=== PATIENT | male | born 1940 | race Caucasian/White ===

== ENCOUNTER 2016-11-13 13:45 | Inpatient (IN) | payer MEDICARE, OTHER ==
--- NOTE | ~2016-11-13 | EKG ---
PATIENT: MERCEDEZ MUÑOZ UNIT #: [id number] Ventricular Rate: 107 BPM Atrial Rate: 107 BPM P-R Interval: 166 ms QRS Duration: 168 ms Q-T Interval: 390 ms QTC Calculation(Bezet): 520 ms P Todd: 27 degrees Calculated R Todd: -73 degrees Calculated T Todd: 67 degrees Diagnosis Line: Sinus tachycardia Diagnosis Line: Possible Left atrial enlargement Diagnosis Line: Right bundle branch block Diagnosis Line: Left anterior fascicular block Diagnosis Line: Bifascicular block Diagnosis Line: Abnormal ECG Diagnosis Line: No previous ECGs available Diagnosis Line: Confirmed by SUZIE HALL MD ([id number]) on Diagnosis Line: 12/02/2016 6:28:37 AM INTERPRETING : NANCY
--- NOTE | ~2016-11-13 | CT4 ---
[facility] A Service of [facility] RADIOLOGY TEXT RESULTS PATIENT: MERCEDEZ MUÑOZ LOCATION: C3A - : 39 UNIT #: [id number] AGE: [address]: Chiqui Lenz MD SEX: M ORDER DR: [id number] [facility] [address] [place], [place] [address] [id number] I MR#: [id number] #: [id number] NAME: MERCEDEZ MUÑOZ : 1940 SEX: M STUDY DATE/TIME: 11/14/2016 19:33 UNIT: C3A PCU ROOM: 305 STUDY DESCRIPTION: CT Abd and Pelv Wo Cont Attending Physician: Chiqui Lenz M.D. Ordering Physician: Chiqui Lenz M.D. Primary Care Physician: Flaquito Mijares M.D. MEDICAL IMAGING REPORT This report is preliminary unless electronic signature is present EXAM CT abdomen and pelvis without contrast HISTORY Abdominal pain onset today. History of sepsis. TECHNIQUE Axial images performed through the abdomen and pelvis without contrast. Multiplanar reconstructed images reviewed. This CT exam was performed with one or more of the following radiation dose reduction techniques: automatic exposure control, adjustment of mA and/or kV according to patient size, and iterative reconstruction. FINDINGS Abdomen: Lung bases unremarkable. Cardiomegaly. Evidence of old granulomas disease. Liver unremarkable except for a low-attenuation lesion along the anterior margin. Liver measuring about 2.1 cm may represent a cyst or hemangioma. Spleen, gallbladder appear normal. Pancreas, kidneys and adrenal glands unremarkable except for a probable cyst lower pole left kidney, measuring about 3.7 cm. The stomach, small bowel colon unremarkable. Pelvis: Bladder is decompressed. There is a subtle nonspecific stranding and/or edema within the pelvic fat just above the bladder. This represents a nonspecific finding. Clearly no drainable fluid collection or abscess seen. Osseous structures remarkable for L2-3 degenerative disc changes. Extensive facet arthropathy lower lumbar spine. On further review there are additional low-attenuation lesions throughout the liver, nonspecific, could represent hepatic cysts. Further evaluation and followup may be STS. [facility] A Service of [facility] RADIOLOGY TEXT RESULTS PATIENT: MERCEDEZ MUÑOZ LOCATION: C3A 305-01 : 39 UNIT #: [id number] AGE: [address]: Chiqui Lenz MD SEX: M ORDER DR: warranted to confirm nature of these lesions. Potentially these could represent metastases. IMPRESSION 1. Nonspecific perivesical edema with questionable bladder wall thickening. Findings are nonspecific but could reflect cystitis. Some edema extends into the left lower quadrant within the retroperitoneum. 2. Multiple low-attenuation liver lesions probably represent benign processes such as cysts; however, clinical followup recommended. Additional imaging to include dedicated liver MRI or CT or ultrasound may be of benefit. Dictated by... Nahum Delgadillo M.D. THIS IS AN ELECTRONICALLY VERIFIED REPORT Nahum Delgadillo M.D. at 11/15/2016 6:54 PM Ana TD: 11/15/2016 04:24 JOB #: [id number] MEDICAL IMAGING REPORT Page 1 of 1 COPY
--- NOTE | ~2016-11-13 | HP ---
Unit #: [id number] #: [id number] Patient: MERCEDEZ MUÑOZ [id number] [address] [address] [id number] I MR#: [id number] NAME: MERCEDEZ MUÑOZ ROOM: 305 Age: 76 Sex: M Admission Date: 11/13/2016 : 1940 Attending Physician: Samira Garcia M.D. Primary Care Physician: Flaquito Mijares M.D. HISTORY AND PHYSICAL CHIEF COMPLAINT UTI with chronic urinary incontinence, toxic metabolic encephalopathy. HISTORY This 76-year-old male with skin cancer, DJD, and likely BPH, was transferred from [facility] emergency department for UTI and confusion. Patient has been experiencing urinary incontinence for the past 3 years, which did not improve with Flomax. He was in his usual state of health until this morning when he was noted to be weak and confused. He was taken to [facility] emergency department early this afternoon with a temperature of 101.8. Was found to have a urinary tract infection. Was given Tylenol; bolused with a liter of saline; given Rocephin, morphine, and Zofran. Apparently, did experience some atypical chest discomfort en route to [facility] ER. Patient states that he had a normal stress test a couple years ago. EKG is abnormal, but I have no EKG for comparison. The patient is still a bit confused, but improved. PAST MEDICAL HISTORY 1. Multiple skin cancers removed. 2. Likely BPH. 3. DJD with chronic pain. 4. Possibly some memory issues. 5. Back surgery. 6. Left knee replacement. ALLERGIES None. HOME MEDICATIONS None. FAMILY HISTORY CAD. SOCIAL HISTORY The patient lives with his and grandchildren. He smokes about a quarter pack per day of tobacco. Started smoking 12 years ago, drinks occasional alcohol. REVIEW OF SYSTEMS Somewhat difficult to obtain as patient is a little bit confused and is somewhat tangential. Unit #: [id number] #: [id number] Patient: MERCEDEZ MUÑOZ PHYSICAL EXAMINATION GENERAL APPEARANCE: Pleasant, obese, 76-year-old male currently in no acute distress. VITAL SIGNS: Temperature 101.8, pulse 104, respirations 18, blood pressure 158/79. I do not have an O2 sat on the patient. HEENT: Eyes: PERRLA. Extraocular muscles are intact. Pharynx is benign. NECK: Supple without adenopathy or thyromegaly. CHEST: Clear. CARDIAC: Normal S1 and S2 without S3, S4, or murmur. ABDOMEN: Bowels sounds are present. No hepatosplenomegaly, tenderness, or masses. EXTREMITIES: Without C, C, or E. Pedal pulses are present. NEUROLOGIC: Patient is awake, alert. He is actually oriented x3, but he is quite tangential and seems to be a little bit confused. His cranial nerves are intact. He has equal strength throughout, except for left arm, which is chronically weak. Needs help to sit up. DIAGNOSTIC STUDIES LABS: Hematocrit 43.2, white blood count 19.3, normal platelet count. Cardiac markers are negative. Normal coags. SMA-12: Sodium 133, phosphorus is 2, bilirubin is 4.4, but the rest of his LFTs are normal. BNP 290. Lactic acid, acetaminophen, salicylate, and alcohol levels are all negligible. Urinalysis: Specific gravity greater than 1.030, positive nitrites, leukocyte esterase, protein with 5-10 red cells, 25-50 white cells. IMAGING: Chest x-ray: Cardiomegaly with mild pulmonary vascular congestion. Head CT: Partial opacification of the left mastoid air cells, no acute disease, mild age appropriate atrophy, sinus disease. CARDIOVASCULAR: EKG: Sinus tachycardia, rate 107, with a bifascicular block including a right bundle and left anterior fascicular block. No old EKG for comparison. ASSESSMENT 1. Urinary tract infection with chronic urinary incontinence. 2. Toxic metabolic encephalopathy. Patient may have some additional memory issues at baseline from his report. 3. Abnormal EKG with a bifascicular block and atypical chest pain this morning. Patient reports negative stress test in the past couple years. 4. Tobacco use. 5. Skin cancer. 6. Degenerative joint disease. PLANS 1. Rocephin and Flomax. 2. Check postvoid bladder scan and ask urology to see. 3. Serial cardiac enzymes, obtain prior EKG and report of last stress test. 4. Obtain echo, SCDs, check B12 level. 5. Aspirin. Unit #: [id number] #: [id number] Patient: MERCEDEZ MUÑOZ Dictated by Amanda Matthews M.D. AML/pc TD: 11/14/2016 05:31 JOB #: [id number] HISTORY AND PHYSICAL Page 1 of 1 X Amanda Matthews MD HISTORY AND PHYSICAL
--- NOTE | ~2016-11-13 | CO ---
Unit #: [id number] #: [id number] Patient: MERCEDEZ MUÑOZ [id number] [address] [place], [place] [address] [id number] I MR#: [id number] NAME: MERCEDEZ MUÑOZ ROOM: 305 Age: 76 Sex: M Admission Date: 11/13/2016 : 1940 Attending Physician: Chiqui Lenz M.D. Primary Care Physician: Flaquito Mijares M.D. CONSULTATION REPORT CHIEF COMPLAINT We were asked to see for elevated troponin. HISTORY OF PRESENT ILLNESS Mr. Muñoz is a 76-year-old, white male who has a history of urinary incontinence of 3 years thought to possibly have benign prostatic hypertrophy. He was [facility] to [facility] from [facility] emergency department secondary to urinary tract infection and confusion. In the emergency room, patient had a troponin of less than 0.05 and a repeat of less than 0.05. He denies any chest pain or chest discomfort. Actually, patient is quite the jokester and does not directly answer many questions and likes to tell stories that have nothing to do with questions asked. He is a retired catering truck driver. He is retired because he had a left hand injury and is unable to drive. He denies any lower extremity edema. Cardiovascular risk factors negative for dyslipidemia, negative for hypertension, negative for family history of premature coronary disease, negative for diabetes, positive for tobacco abuse. PAST MEDICAL HISTORY 1. Multiple areas of skin cancer on his face with surgical resection. 2. Degenerative joint disease. 3. Urinary incontinence of 3 years duration. SURGICAL HISTORY Left knee surgery, back surgery, left hand surgery. HOME MEDICATIONS None are listed. Patient denies home medications. ALLERGIES No known drug allergies. FAMILY HISTORY Mother in her 70s from emphysema. Father at the age of 85 and he had a pacemaker. SOCIAL HISTORY Patient lives with his and grandchildren. States he smokes 2-3 cigarettes a day. Started smoking at the age of 11. Admits to one alcoholic beverage a day. Used to drink heavy in the past, but not anymore. No illicit drug use. Retired catering truck driver. REVIEW OF SYSTEMS No fevers. No chills. No cough. Positive for incontinence. No dysuria. Unit #: [id number] #: [id number] Patient: MERCEDEZ MUÑOZ No hematuria. No melena. No bright red bleeding per rectum. No lower extremity edema. No gait disturbance. No syncope. No near syncope. PHYSICAL EXAMINATION GENERAL APPEARANCE: Well developed, well nourished, elderly, white male who is still slightly inappropriate, but he is now oriented to person, place, and time. VITAL SIGNS: Temp 98.2; pulse 68, normal sinus rhythm; respirations 16; blood pressure 114/82; oxygen saturation 94% on room air; weight (1) kg, patient weight 129 kg in January of 2015; BMI is 39. HEENT: Normocephalic and atraumatic. No xanthelasma. Pupils equal, round, and reactive to light. Extraocular movements intact. NECK: Supple. No jugular venous distention. No elevated CVP. No adenopathy. No thyromegaly. CHEST: Clear to auscultation bilaterally, anteriorly, posteriorly, all hurst. HEART: S1, S2. No S3, S4. No murmurs, rubs, or gallops. ABDOMEN: Positive bowel sounds. Soft, nontender, obese. EXTREMITIES: No lower extremity edema. No clubbing, cyanosis, or edema. 2+ pulses bilaterally. SKIN: Skin about face shows excision of skin cancers. No rash. No ulcers. No wounds. DIAGNOSTIC STUDIES IMAGING: CT of the head: Partial opacification of the left mastoid air cells inferiorly may represent changes of mastoiditis. No acute intracranial findings. Mild age appropriate atrophy. Mild maxillary sinus mucosal thickening. Chest x-ray shows cardiomegaly with mild pulmonary vascular congestion. No dense airspace disease or consolidation. No effusions. Diffuse interstitial prominence could represent background fibrosis, scarring. LABORATORY: Chemistry: Sodium 139, potassium 3.7, chloride 105, CO2 26, BUN 24, creatinine 1.2, glucose 123, phosphorus 2, magnesium 1.8, total protein 7.4, albumin 4.1, AST 23, ALT 20, alk phos 57. Total CK 412. BNP 290. Lactic acid 1. Point of care troponin less than 0.05, repeat less than 0.05. Troponin per chemistry 0.08, repeat 0.08. PT 14.6, INR 1.3, PTT 21.7. Hemoglobin 13.5, hematocrit 40.3, white blood cell count 12, platelet count 169. Chemistry toxicology is negative. UA showed 1+ leukocyte esterase, protein 2+, blood 3+, red blood cells 5-10, white blood cells 25-50, bacterial 1+. Culture shows gram-negative rods. CARDIOVASCULAR: 12-lead EKG shows sinus tachycardia with ventricular rate of 107, left atrial enlargement, right bundle branch block, left anterior fascicular block. When compared to EKG in 2016, it is unchanged. ASSESSMENT/PLAN 1. Gram-negative ollie urinary tract infection. Patient is currently on Rocephin. 2. Toxic metabolic encephalopathy. 3. Troponin is negative for acute myocardial infarction. EKG shows right bundle branch block with left anterior fascicular block, which was unchanged from 2016. We will obtain a 2D echocardiogram with Doppler. We will check a fasting lipid panel in the a.m., TSH in the a.m. Dr. Tirado to follow for any further recommendations. Unit #: [id number] #: [id number] Patient: MERCEDEZ MUÑOZ Dictated by... Christine Green, Igor.P.R.N. for Castro Tirado M.D. MOOK/porter TD: 11/15/2016 07:30 JOB #: [id number] CONSULTATION REPORT Page 1 of 1 X X CONSULTATION REPORT
--- NOTE | ~2016-11-13 | CT71 ---
[facility] A Service [facility] RADIOLOGY TEXT RESULTS PATIENT: MERCEDEZ MUÑOZ [facility] UNIT #: [id number] AGE: [address]: Chiqui Lenz MD SEX: M ORDER DR: [id number] [place] [id number] E MR#: [id number] Acc #: [id number] NAME: MERCEDEZ MUÑOZ : 1940 SEX: M STUDY DATE/TIME: 11/13/2016 14:13 UNIT: SED ROOM: STUDY DESCRIPTION: CT Head Wo Contrast Attending Physician: Jose Manuel Hopson M.D. Ordering Physician: Jose Manuel Hopson M.D. Primary Care Physician: Flaquito Mijares M.D. MEDICAL IMAGING REPORT This report is preliminary unless electronic signature is present. EXAMINATION Noncontrast CT head. DATE 11/13/2016 HISTORY Chest pain, confusion and fever since this morning. History of skin cancer. COMPARISON None. TECHNIQUE This CT exam was performed with one or more of the following radiation dose reduction techniques: automatic exposure control, adjustment of mA and/or kV according to patient size, and iterative reconstruction. FINDINGS Mild motion degradation. No acute intracranial hemorrhage, mass lesion, mass effect, midline shift or evidence of acute or evolving infarct. Mild generalized atrophy. Ventricular configuration is within normal limits. Mild bilateral maxillary sinus mucosal thickening. Calvaria is within normal limits. Partial opacification left mastoid air cells inferiorly. IMPRESSION 1. Partial opacification of the left mastoid air cells inferiorly may represent changes of mastoiditis. Clinically correlate. 2. No acute intracranial finding. 3. Mild age-appropriate atrophy. 4. Mild maxillary sinus mucosal thickening. [facility] A Service [facility] RADIOLOGY TEXT RESULTS PATIENT: MERCEDEZ MUÑOZ LOCATION: C3A 305- : 39 UNIT #: [id number] AGE: [address]: Chiqui Lenz MD SEX: M ORDER DR: Dictated by... Sari Yates M.D. THIS IS AN ELECTRONICALLY VERIFIED REPORT Sari Yates M.D. at 11/14/2016 12:27 PM IMAN/luz TD: 11/13/2016 16:01 JOB #: [id number] MEDICAL IMAGING REPORT Page 1 of 1
--- NOTE | ~2016-11-13 | CO ---
Unit #: [id number] #: [id number] Patient: MERCEDEZ MUÑOZ [id number] [address] [place], [place] [address] [id number] I MR#: [id number] NAME: MERCEDEZ MUÑOZ ROOM: 305 Age: 76 Sex: M Admission Date: 11/13/2016 : 1940 Attending Physician: Chiqui Lenz M.D. Primary Care Physician: Flaquito Mijares M.D. Consultation Date: 11/14/2016 CONSULTATION REPORT REASON FOR CONSULTATION Urinary incontinence. HISTORY OF PRESENT ILLNESS This is a 76-year-old man who was transferred from [facility] for altered mental status and noted to have chronic urinary incontinence. He appears to have toxic metabolic encephalopathy associated with gram-negative urinary tract infection. I saw him at bedside as family was leaving and he seems fully oriented, but not entirely appropriate with rambling history and emotional tangents. He does admit to small frequent urinations with insensate incontinence for a number of years at least 3 despite taking Flomax supplied by a [place] urologist years ago without any clear benefit. He has no prior urologic history otherwise, however. He denies any current dysuria. He has no history of urinary tract infection to his knowledge. He was unaware of fever. He has no flank pain. He denies any history of kidney stones or gross hematuria. PAST MEDICAL HISTORY "[employer]" by which he means skin cancer which he relates to his service in [place]. He has some dementia he volunteers as well as degenerative joint disease. 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 PAST SURGICAL HISTORY Back and left knee. MEDICATIONS He denies any on admission. Now, on Rocephin and Flomax as well as vitamin B12 and he has been started on aspirin by Cardiology. ALLERGIES None known. FAMILY HISTORY Negative for prostate cancer. SOCIAL HISTORY Reportedly, he has smoked one-quarter of a pack per day for 12 years. He tells me, his grandson from a motor vehicle accident in [place] 10 days ago. REVIEW OF SYSTEMS Unit #: [id number] #: [id number] Patient: MERCEDEZ MUÑOZ Negative for constipation. PHYSICAL EXAMINATION GENERAL: The patient is pleasant, alert, markedly obese. He is oriented to person, place, and time. ABDOMEN: No evidence of suprapubic distention or tenderness on supine exam and otherwise abdomen is soft, nontender. HEENT: Unremarkable. LUNGS: Clear. : Penis and testicles normal. Normal glans and meatus. Normal descended. Prostate digital exam, normal anus and sphincter tone. It feels about 30 g, fairly normal and benign. EXTREMITIES: No edema. NEUROLOGIC: Grossly intact. DIAGNOSTIC STUDIES LABORATORY RESULTS: Urinalysis consistent with infection. Urine culture, gram-negative rods today. WBC 12 down from 19 on admission. BUN 24, creatinine 1.2. EGFR 58 has dipped below 60. IMAGING STUDIES: None. IMPRESSION Urinary tract infection with gram-negative sepsis. Admission fever and leukocytosis have resolved. Unclear if chronic urinary retention or overactive bladder, but no acute need to place a Elizondo given his clinical progress. PLAN At this point, we will ask for an immediate CT scan of the abdomen and pelvis to better assess the upper and lower tracts without contrast at least initially. We will continue antibiotics, follow cultures, and treat voiding symptoms and incontinence according to findings and progress. Thank you, Dr. Hogan, for the consultation. Dictated by... Kristian Malloy M.D. KASSIDY/rommel TD: 11/15/2016 14:43 JOB #: [id number] CC: Samira Garcia M.D. CONSULTATION REPORT Page 1 of 1 X Kristian Malloy MD X CONSULTATION REPORT
--- NOTE | ~2016-11-13 | CR72 ---
[facility] A Service of [facility] & [facility] RADIOLOGY TEXT RESULTS PATIENT: MERCEDEZ MUÑOZ LOCATION: [facility] [address]-12 : 39 UNIT #: [id number] AGE: [address]: Samira Garcia MD SEX: M ORDER DR: [id number] [address] [address] [id number] E MR#: [id number] #: [id number] NAME: MERCEDEZ MUÑOZ : 1940 SEX: M STUDY DATE/TIME: 11/13/2016 14:19 UNIT: SED ROOM: STUDY DESCRIPTION: CR Chest Single View Portable Attending Physician: Jose Manuel Hopson M.D. Ordering Physician: Jose Manuel Hopson M.D. Primary Care Physician: Flaquito Mijares M.D. MEDICAL IMAGING REPORT This report is preliminary unless electronic signature is present. EXAM Portable chest HISTORY Chest pain, confusion, fever onset today. COMPARISON 10/03/2012 FINDINGS AP portable view of the chest demonstrates moderate lung volumes. Underpenetrated technique. Cardiomegaly with mild pulmonary vascular congestion. No dense airspace disease or consolidation. No effusions. Diffuse interstitial prominence could represent background fibrosis, scarring. No invasive tubes or lines, no pneumothorax. Dictated by... Nahum Delgadillo M.D. THIS IS AN ELECTRONICALLY VERIFIED REPORT Nahum Delgadillo M.D. at 11/13/2016 7:57 PM NAKUL/elke TD: 11/13/2016 16:01 JOB #: [id number] MEDICAL IMAGING REPORT Page 1 of 1
--- NOTE | ~2016-11-13 | BMI ---
[facility] Nutrition Therapy DATE: 11/14/16 Patient: MERCEDEZ MUÑOZ Physician: MALIA Address: [address] [facility] Room/Bed: [address] [place] [address], Zip: [place] [address] Admit Date: 11/13/16 Date of : 39 Height: Weight: 288 131 HIGH BMI NOTE: DX: 76 y/o male admitted with UTI ANTHROPOMETRICS: Ht: 71", Wt: 131 kg, BMI: 40.3 (stage III obese) DIET: Healthy heart INTERVENTION: Restricted diet, meds/fluids per MD RECOMMENDATIONS: Continue healthy heart diet to promote a gradual weight loss towards a healthy BMI range. Respectfully, Akla Chapman RD, LD Food and Nutritional Services [facility] cc: client file
--- NOTE | ~2016-11-13 | DS ---
Unit #: [id number] #: [id number] Patient: MERCEDEZ MUÑOZ [id number] [address] [address] [id number] MR#: [id number] NAME: MERCEDEZ MUÑOZ ROOM: 305 Age: 76 Sex: M Admission Date: 11/13/2016 : 1940 Discharge Date: 11/15/2016 Attending Physician: Chiqui Lenz M.D. Primary Care Physician: Flaquito Mijares M.D. DISCHARGE SUMMARY PRINCIPAL DIAGNOSES 1. Sepsis secondary to Escherichia coli urinary tract infection. 2. Toxic metabolic encephalopathy secondary to #1, now resolved. 3. Vitamin B12 deficiency with vitamin B12 level of 153. 4. Elevated troponin, nondiagnostic. 5. Probable memory loss. 6. Skin cancer. 7. Tobaccoism. 8. Obesity. 9. Probable obstructive sleep apnea. CONSULTANTS 1. Dr. Mallyo - Urology. 2. Dr. Tirado - Cardiology. PROCEDURES 1. CT scan of abdomen and pelvis without contrast on November 14, 2016, with perivesicular edema and questionable bladder wall thickening consistent with cystitis. Multiple low attenuation liver lesions consistent with cyst. 2. Chest x-ray on November 13, 2016, with cardiomegaly and mild pulmonary vascular congestion. No effusions. Interstitial prominence noted. 3. CT of the head without contrast on November 13, 2016, with generalized atrophy. CLINICAL HISTORY AND HOSPITAL COURSE Mr. Muñoz is a 76-year-old male who presents to the emergency department with worsening urinary incontinence. He was increasingly confused. In the emergency department, he was found to be febrile. Blood work revealed probably urinary tract infection. White blood cell count was also elevated at 19,000. Patient was subsequently admitted. Patient was placed on empiric Rocephin. Urine culture is growing E. coli. Patient has been on appropriate antibiotic therapy. Fever has resolved as has associated tachycardia and leukocytosis. Will complete antibiotics as outlined below. Patient has had, again, a long history of urinary incontinence for which urology was consulted. Patient underwent CT scan of the abdomen and pelvis with findings as noted. It is felt that his urinary incontinence likely is overactive bladder. Again, plan is to continue antibiotics for his associated cystitis. He has been place don a low dose of Flomax and he will follow up with urology [facility]. Unit #: [id number] #: [id number] Patient: MERCEDEZ MUÑOZ There was concern about patient's mental status voiced by both his family and staff. This morning, his mental status is significantly improved. However, it appears he has some short term memory loss at baseline. Vitamin B12 level was found to be significantly low and this will be replaced on an outpatient basis. He also needs outpatient sleep apnea testing and further evaluation by neurology on an outpatient basis. Patient did have troponin checked and it peaked at 0.08. He did have an abnormal EKG but it is unclear to us whether these changes were new or old. He had no associated chest pain and there is no plans for further evaluation during hospitalization. This is not felt to be an AL. Patient's otherwise chronic conditions are stable and he will be discharged home today. DISCHARGE CONDITION Stable. DISCHARGE STATUS Discharge to home. DISCHARGE MEDICATIONS 1. Flomax 0.4 mg daily with one refill given. 2. Omnicef 300 mg p.o. b.i.d. for ten days. 3. Aspirin 81 mg daily. 4. Vitamin B12 1000 mcg p.o. daily which can be purchased [id number]. DISCHARGE INSTRUCTIONS Patient instructed to follow a heart healthy diet. He can increase his activity as tolerated. FOLLOWUP Patient will follow up with Dr. Flaquito Mijares at [facility]. When seen and followed by Dr. Mijares, patient to have evaluation for obstructive sleep apnea and likely would benefit from weekly vitamin B12 levels just for the next several months. Again, should follow up with urology at the [facility] as well. Dictated by... Chiqui Lenz M.D. Nasrin/kale TD: 11/18/2016 13:13 JOB #: [id number] Unit #: [id number] #: [id number] Patient: MERCEDEZ MUÑOZ DISCHARGE SUMMARY Page 1 of 1 X Chiqui Lenz MD DISCHARGE SUMMARY
[~2016-11-13 13:45] MED LIST: ERYTHROMYCIN O3.5 G1 OD; FLEXERIL PO; FLOMAX0.4 M1 PO; LORTAB 5/500 TA1 TA1 PO; NAPROSYN250 M1 PO
[2016-11-13 14:02] LABS: MEAN CORPUSCULAR HGB CONC 34.3 g/dL (30-36); NEUTROPHIL# 17.2 X10e3 (1.5-7.1); PLATELET COUNT 205 X10e3 (140-420); RED BLOOD COUNT 4.58 X10e (3.90-5.60)
[2016-11-13 14:16] LABS: INR 1.3; PROTHROMBIN TIME (PATIENT) 14.6 SECONDS (9.5-12.4)
[2016-11-13 14:17] LABS: POC - CKMB 2.1 ng/mL (0.0-7.9); POC - TROPONIN <0.05 ng/mL (<=0.05)
[2016-11-13 14:23] LABS: BASOPHIL# 0.1 X10e3 (0-0.3); BASOPHIL% 0.4 % (0-2.5); HEMATOCRIT 43.2 % (38.0-50.0); HEMOGLOBIN 14.8 gm/dL (13.0-16.0); LYMPHOCYTE# 0.9 X10e3 (1.0-3.5); LYMPHOCYTE% 4.6 % (17.0-45.0); MEAN CELL VOLUME 94.3 FL (83-96); MEAN CORPUSCULAR HEMOGLOBIN 32.3 PG (28-34); MEAN PLATELET VOLUME 9.3 FL (6.5-11.5); MONOCYTE# 1.1 X10e3 (0-1.0); MONOCYTE% 5.9 % (3.0-12.0); NEUTROPHIL% 89.1 % (40-75); RED CELL DISTRIBUTION WIDTH 14.5 % (11.0-15.5); WHITE BLOOD COUNT 19.3 X10e3 (4.0-10.5)
[2016-11-13 14:24] LABS: ALBUMIN SERUM 4.1 g/dL (3.5-5.0); BILIRUBIN,TOTAL 4.4 mg/dL (0.2-2.0); CALCIUM SERUM 8.8 mg/dL (8.4-10.2); GLOM FILT RATE Estimated 72.3 mL/min (>60); MAGNESIUM 1.8 mg/dL (1.6-3.0); PARTIAL THROMBOPLASTIN TIME 21.7 SECONDS (25.6-38.1); POTASSIUM 3.7 mmol/L (3.5-5.1); PROTEIN TOTAL SERUM 7.4 g/dL (6.0-8.3)
[2016-11-13 14:29] LABS: DIFF IND NO
[2016-11-13 15:01] LABS: URINE SOURCE CLEAN CATCH
[2016-11-13 15:03] LABS: URINE APPEARANCE CLEAR; URINE BLOOD 3+ (NEG); URINE COLOR AMBER; URINE GLUCOSE NEG (NORM); URINE KETONE TRACE (NEG); URINE NITRATE POS (NEG); URINE PH 5.5 (5-8); URINE PROTEIN 2+ (NEG); URINE SPECIFIC GRAVITY >=1.030 (1.003-1.035)
[2016-11-13 15:04] LABS: MICRO INDICATED? YES; URINE BILIRUBIN NEG (NEG)
[2016-11-13 15:13] LABS: AMPHETAMINE NEG (NEG); BARBITURATES NEG (NEG); BENZODIAZEPINES NEG (NEG); COCAINE NEG (NEG); MARIJUANA NEG (NEG); OPIATES NEG (NEG); TRICYCLIC ANTIDEPRESSANTS NEG (NEG); U METHADONE NEG (NEG)
[2016-11-13 15:14] LABS: URINE WBC 25-50 /[HPF] (0-5)
[2016-11-13 15:15] LABS: CULTURE INDICATED? YES; URINE BACTERIA 1+ (NEG); URINE LEUKOCYTE ESTERASE 1+ (NEG)
[2016-11-13 15:50] LABS: POC - CKMB 1.3 ng/mL (0.0-7.9)
[2016-11-13 15:51] LABS: POC - MYOGLOBIN >500.0 ng/mL (0.0-169.0); POC - TROPONIN <0.05 ng/mL (<=0.05)
[2016-11-13 16:18] LABS: SALICYLATE <4.0 mg/dL
[2016-11-13] MEDS ORDERED: ARTIFICAL TEARS (16:25)
[2016-11-13 16:27] LABS: ACETAMINOPHEN <10 ug/mL; ALCOHOL BLOOD <5 mg/dL ([0,])
[2016-11-14 00:59] LABS: %MB 0.6 % (0.0-4.0); MB 2.6 ng/ml
[2016-11-14 05:35] LABS: HEMATOCRIT 40.3 % (38.0-50.0); HEMOGLOBIN 13.5 gm/dL (13.0-16.0); MEAN CELL VOLUME 95.2 FL (83-96); MEAN CORPUSCULAR HEMOGLOBIN 31.9 PG (28-34); MEAN CORPUSCULAR HGB CONC 33.5 g/dL (30-36); MEAN PLATELET VOLUME 9.3 FL (6.5-11.5); RED BLOOD COUNT 4.24 X10e (3.90-5.60); RED CELL DISTRIBUTION WIDTH 14.2 % (11.0-15.5)
[2016-11-14 06:23] LABS: CALCIUM SERUM 8.7 mg/dL (8.4-10.2); CREATININE SERUM 1.2 mg/dL (0.6-1.4); POTASSIUM 3.7 mmol/L (3.5-5.1)
[2016-11-14 08:02] LABS: %MB 1.1 % (0.0-4.0); MB 4.5 ng/ml
[2016-11-15 06:12] LABS: HEMATOCRIT 39.6 % (38.0-50.0); HEMOGLOBIN 13.6 gm/dL (13.0-16.0); MEAN CELL VOLUME 94.3 FL (83-96); MEAN CORPUSCULAR HEMOGLOBIN 32.3 PG (28-34); MEAN CORPUSCULAR HGB CONC 34.3 g/dL (30-36); MEAN PLATELET VOLUME 9.3 FL (6.5-11.5); RED BLOOD COUNT 4.2 X10e (3.90-5.60); RED CELL DISTRIBUTION WIDTH 14.2 % (11.0-15.5); WHITE BLOOD COUNT 6.7 X10e3 (4.0-10.5)
[2016-11-15 07:01] LABS: BUN/CREATININE RATIO 21.81; CALCIUM SERUM 8.9 mg/dL (8.4-10.2); CREATININE SERUM 1.1 mg/dL (0.6-1.4); GLOM FILT RATE Estimated 64.4 mL/min (>60); POTASSIUM 3.8 mmol/L (3.5-5.1)
[2016-11-15] MEDS ORDERED: FLOMAX0.4 M1 PO (11:26)
[2016-11-15] MEDS ORDERED: ASPIRIN81 M2 PO (11:27)
[2016-11-15] MEDS ORDERED: B-121000 MC1 PO (11:27)
[2016-11-15] MEDS ORDERED: ARTIFICIAL TEAR15 M9 (11:28)
[2016-11-15] MEDS ORDERED: OMNICEF PO (11:28)
== END 2016-11-15 13:03 | disposition home or self-care (01) | DRG 871 ==
LOC: SED 13:45 → CEDOF 16:23 → C3A PCU 16:23
PROVIDERS: Emergency Medicine; Internal Medicine
PROC: B246YZZ Ultrasonography of Right and Left Heart using Other Contrast (ICD-10-PCS; principal; 2016-11-14)
DX: A41.51 Sepsis due to Escherichia coli [E. coli] (principal); G92 Toxic encephalopathy; N39.0 Urinary tract infection, site not specified; F17.210 Nicotine dependence, cigarettes, uncomplicated; E53.8 Deficiency of other specified B group vitamins; E66.9 Obesity, unspecified; G47.33 Obstructive sleep apnea (adult) (pediatric); R32 Unspecified urinary incontinence; Z96.652 Presence of left artificial knee joint; M19.90 Unspecified osteoarthritis, unspecified site; Z85.828 Personal history of other malignant neoplasm of skin
CPT/HCPCS: 36415; 70450; 71010; 74176; 80048; 80053; 80061; 80307; 81003; 82550; 82553; 82607; 83605; 83735; 83874; 83880; 84100; 84443; 84484; 85025; 85027; 85610; 85730; 87086; 87088; 87186; 93005; 93306; 94762; 96360; 97161; 97165; 99285; G0480; G8978-GP; G8979-GP; G8980-GP; G8987-GO; G8988-GO; G8989-GO; J0696; J1940; J2270; J2405; J3420